=== PATIENT | male | born 1990 | race American Indian/Alaskan Native ===

== ENCOUNTER 2018-12-14 14:10 | Emergency (ER) | payer OTHER ==
[2018-12-14 15:06] VITALS: TEMP 98.7; O2SAT 99
--- NOTE | 2018-12-14 16:31 | ED PDOC ---
HPI: Skin/Bite Injury Time Seen by Provider: 12/14/18 15:43 Chief Complaint (Nursing): GI Problem History Per: Patient Additional Complaint(s): Pt. states for the past 3 weeks he's had a progressively worsening rectal pain with foul smelling discharge. States on 02/2018 he had a rectal abscess which was drained in the OR in [facility]. Has not used any meds to help relieve symptoms. Denies fever, chills, abdominal pain. Past Medical History Reviewed: Historical Data, Nursing Documentation, Vital Signs Vital Signs: Last Vital Signs Temp 98.7 F 12/14/18 15:02 Pulse 67 12/14/18 15:02 Resp 16 12/14/18 15:02 BP 118/75 12/14/18 15:02 Pulse Ox 99 12/14/18 15:02 Primary Care Provider: FAMILY PROVIDER,NO - Medical History PMH: No Chronic Diseases Denies: Diabetes - Family History Family History: States: No Known Family Hx - Allergies Allergies/Adverse Reactions: Allergies Allergy/AdvReac Type Severity Reaction Status Date / Time No Known Allergies Allergy Verified 12/14/18 15:02 Review of Systems ROS Statement: Except As Marked, All Systems Reviewed And Found Negative Gastrointestinal: Positive for: Rectal Pain Physical Exam - Physical Exam Appears: Positive for: Well, Non-toxic, In Acute Distress (moderate painful distress) Eye Exam: Positive for: Normal appearance Cardiovascular/Chest: Positive for: Regular Rate, Rhythm Respiratory: Positive for: Normal Breath Sounds. Negative for: Respiratory Distress Gastrointestinal/Abdominal: Positive for: Normal Exam, Soft. Negative for: Tenderness Back: Positive for: Other (minimal b/l medial buttoc induration with foul smelling discharge; unable to visualized rectum ) Neurological/Psych: Positive for: Awake, Alert, Oriented (x3) - Laboratory Results Result Diagrams: 12/14/18 19:40 - ECG O2 Sat by Pulse Oximetry: 99 - Progress ED Course And Treament: Labs, CT pelvis w/ IV contrast, morphine 2mg IV, zofran 4mg IV ordered. Disposition - Clinical Impression Clinical Impression: Rectal pain - Patient ED Disposition Is Patient to be Admitted: Transfer of Care (Signed out to Lima CARRILLO pending labs and CT report) - Disposition Disposition Time: 20:00 Condition: FAIR Forms: [employer] (Eritrean)
[2018-12-14 19:54] LABS: BASO # 0.1 K/uL (0.0-0.2); EOS # 0.1 K/uL (0.0-0.7); HEMOGLOBIN 15.1 g/dL (12.0-18.0); LYMPH % 38.5 % (20.0-40.0); MEAN CELL VOLUME 90.7 fl (80.0-94.0); MEAN CORPUSCULAR HEMOGLOBIN 30.6 pg (27.0-31.0); MEAN CORPUSCULAR HGB CONC 33.7 g/dL (33.0-37.0); MEAN PLATELET VOLUME 7.8 fl (7.2-11.7); MONO # 0.5 K/uL (0.0-0.8); NEUT # 2.5 K/uL (1.8-7.0); NEUT % 49.5 % (50.0-75.0); NRBC % 0.3 % (0.0-0.0); RBC 4.94 Mil/uL (4.40-5.90); RED CELL DISTRIBUTION WIDTH 12.7 % (11.5-14.5); WHITE BLOOD COUNT 5.1 K/uL (4.8-10.8)
[2018-12-14 20:08] LABS: ALB/GLOB RATIO 1.4 (1.0-2.1); ALBUMIN 4.5 g/dL (3.5-5.0); ALT/SGPT 34 U/L (21-72); AST/SGOT 28 U/L (17-59); BLOOD UREA NITROGEN 10 mg/dl (9-20); CALCIUM 9.4 mg/dL (8.4-10.2); GFR NON-AFRICAN AMERICAN > 60
[2018-12-14] MEDS ORDERED: Sodium Chloride 0.9% 50 ML IV ONE (21:04)
[2018-12-14] MEDS ORDERED: Iohexol 300 100 ML IJ ONE (21:04)
--- NOTE | 2018-12-14 21:23 | ED PDOC ---
- Laboratory Results Result Diagrams: 12/14/18 19:40 12/14/18 19:40 Lab Results: Total Bilirubin 0.6 mg/dl (0.2-1.3) 12/14/18 19:40 AST 28 U/L (17-59) 12/14/18 19:40 ALT 34 U/L (21-72) 12/14/18 19:40 Alkaline Phosphatase 51 U/L (38-126) 12/14/18 19:40 Total Protein 7.9 G/DL (6.3-8.2) 12/14/18 19:40 Albumin 4.5 g/dL (3.5-5.0) 12/14/18 19:40 Globulin 3.4 gm/dL (2.2-3.9) 12/14/18 19:40 Albumin/Globulin Ratio 1.4 (1.0-2.1) 12/14/18 19:40 - ECG O2 Sat by Pulse Oximetry: 99 - Progress ED Course And Treament: Case endorsed to documentation writer from Meghann CARRILLO pending labs, CT EXAM: CT Pelvis with IV contrast CLINICAL HISTORY: Rectal pain h/o rectal abcess TECHNIQUE: Axial computed tomography images of the pelvis with intravenous contrast. 365.30 mGy-cm CONTRAST: With intravenous contrast. COMPARISON: None provided. FINDINGS: APPENDIX/BOWEL: No evidence of acute appendicitis on CT examination. At the 10:00-11 o'clock position in the lower rectal mucosal wall; there is identified a focal 2.2 x 3.1 cm area of mural thickening. The possibility of rectal mucosal mass or localized proctitis cannot be excluded. Correlation with proctoscopy is recommended. No perirectal abscess is identified. URINARY BLADDER: Normal in size and configuration. PERITONEUM: No free fluid. No free air. LYMPH NODES: No lymphadenopathy is evident. REPRODUCTIVE: Unremarkable as visualized. VASCULATURE: No evidence of abdominal aortic aneurysm. BONES: No aggressive appearing osseous lesion. No acute osseous pathology evident. IMPRESSION: 1. Lower rectal mucosal wall mural thickening as above. Correlation with proctoscopy is recommended. 2. No identification of perirectal abscess. Patient evaluated by Dr. Singh, residential nurse on-call; recommends d/c with antibiotics, sitz baths for gluteal abscess as per Dr. Maddox Patient educated on findings, discharged with rx Bactrim DS Patient was advised to follow up with surgery for abscess and GI for proctitis findings Return precautions given Disposition - Clinical Impression Clinical Impression: Rectal pain, Gluteal abscess - POA Present On Arrival: None - Disposition Disposition: Routine/Home Disposition Time: 00:00 Condition: STABLE Forms: [facility] (Lithuanian)
--- NOTE | 2018-12-14 22:36 | CP.PCM.CON ---
History of Present Illness - History of Present Illness History of Present Illness: Surgery Consult note. Dr. Maddox 28yo M with PMHx of perineal abscess s/p drainage 02/2018 here for recurrent symptoms. Patient reports 2 weeks of worsening pain in the perineal region. Noted to have drainage that began 7 days ago but the pain persists. Denies any fevers or chills. No N/V/D. Reports regular bowel movements with one episode of some bright red blood per rectum last week, which has since resolved. Denies any abdominal pain. Denies any urinary complaints. Denies being on any recent antibiotics and denies ever using any SITZ baths. No recent travel. PMHx: perineal/gluteal abscess PSHx: perineal/gluteal abscess drainage 02/2018 Family Hx: Denies Social Hx: Denies tobacco use, Occasional ETOH use. Denies illicit drugs NKDA Review of Systems - Review of Systems All systems: reviewed and no additional remarkable complaints except - Constitutional Constitutional: absent: Chills, Fever Past Patient History - Past Medical History & Family History Past Family History: Reviewed and not pertinent - Past Social History Smoking Status: Never Smoked Alcohol: Social - PSYCHIATRIC Hx Substance Use: No - SURGICAL HISTORY Hx Surgeries: No Other/Comment: rectal abscess surgery 2019 Meds Allergies/Adverse Reactions: Allergies Allergy/AdvReac Type Severity Reaction Status Date / Time No Known Allergies Allergy Verified 12/14/18 15:02 Physical Exam - Constitutional Appears: Well, Non-toxic, No Acute Distress - Head Exam Head Exam: ATRAUMATIC, NORMAL INSPECTION, NORMOCEPHALIC - Eye Exam Eye Exam: EOMI, Normal appearance. absent: Scleral icterus - ENT Exam ENT Exam: Mucous Membranes Moist - Respiratory Exam Respiratory Exam: NORMAL BREATHING PATTERN. absent: Accessory Muscle Use, Respiratory Distress - Cardiovascular Exam Cardiovascular Exam: absent: JVD - GI/Abdominal Exam GI & Abdominal Exam: Soft. absent: Distended, Firm, Guarding, Rebound, Rigid - Rectal Exam Additional comments: No rectal tenderness in all quadrants on RIA. Stool noted in the rectal vault. No blood. - Skin Additional comments: Left gluteal area of mild induration with active purulent drainage noted. Noted to have some hypergranulation tissue presumably at the prior I&D site. No discernable collection noted. No fluctuance. Results - Vital Signs Recent Vital Signs: Last Vital Signs Temp 98.7 F 05/07/19 15:02 Pulse 67 12/14/18 15:02 Resp 16 12/14/18 15:02 BP 118/75 12/14/18 15:02 Pulse Ox 99 12/14/18 22:05 - Labs Result Diagrams: 12/14/18 19:40 12/14/18 19:40 Labs: Laboratory Results - last 24 hr 12/14/18 12/14/18 19:40 19:40 WBC 5.1 RBC 4.94 Hgb 15.1 Hct 44.8 MCV 90.7 MCH 30.6 MCHC 33.7 RDW 12.7 Plt Count 284 MPV 7.8 Neut % (Auto) 49.5 L Lymph % (Auto) 38.5 [place] % (Auto) 9.0 Eos % (Auto) 2.0 Baso % (Auto) 1.0 Neut # (Auto) 2.5 Lymph # (Auto) 2.0 [place] # (Auto) 0.5 Eos # (Auto) 0.1 Baso # (Auto) 0.1 Sodium 136 Potassium 3.9 Chloride 96 L Carbon Dioxide 31 H Anion Gap 13 BUN 10 Creatinine 0.7 L Est GFR ( Amer) > 60 Est GFR (Non-Af Amer) > 60 Random Glucose 78 Calcium 9.4 Total Bilirubin 0.6 AST 28 ALT 34 Alkaline Phosphatase 51 Total Protein 7.9 Albumin 4.5 Globulin 3.4 Albumin/Globulin Ratio 1.4 Assessment & Plan - Assessment and Plan (Free Text) Assessment: 28yo M with left gluteal abscess, actively draining. Plan: - cleared for discharge home from surgery standpoint - close follow up with Dr. Maddox in office. Call for appointment - D/C on PO Abx - Recommend SITZ baths - Keep area clean and dry. - Discussed plan with patient at length who understands and agrees. All questions addressed. Further recs as per Dr. Tan Singh PGY2 surgery
[2018-12-15 06:50] VITALS: BP 108/66; PULSE 63; RESP 18
--- NOTE | 2018-12-15 11:11 | CT ---
Date of service: 12/14/2018 PROCEDURE: CT Pelvis with contrast HISTORY: rectal pain, hx of rectal abscess COMPARISON: None TECHNIQUE: Contiguous axial images of the pelvis with contrast. Coronal and sagittal reformats generated. Contrast dose: 95 cc Visipaque 320. Radiation dose: Total exam DLP = 365.3 mGy-cm. This CT exam was performed using one or more of the following dose reduction techniques: Automated exposure control, adjustment of the mA and/or kV according to patient size, and/or use of iterative reconstruction technique. FINDINGS: BLADDER: Unremarkable. No mass. REPRODUCTIVE ORGANS: Unremarkable. VISUALIZED BOWEL: Unremarkable. PERITONEUM: Unremarkable, as visualized. No free fluid. No free air. LYMPH NODES: Unremarkable. No enlarged lymph nodes. VASCULATURE: No aortic atherosclerotic calcification or mural plaque present. BONES: No fracture or focal lesion. OTHER FINDINGS: Lateral and posterior thickening of the wall of the rectum to the left of the midline with inflammatory changes extending to the lower pelvic sidewall. Please refer to axial series 2/image 49 and coronal series 601/image 69. No discrete abscess or drainable collection identified. No of sense of sinus tract or fistula. The adjacent urinary bladder is unaffected. IMPRESSION: Left lateral and posterior proctitis. No drainable abscess, fistulous communication, sinus tract or other pathologic process. Concordant results (preliminary interpretation) provided by [employer]. Procedure Completed: 21:20. Preliminary Report: Interpreted and electronically signed: 22:03. Final Interpretation: 10:06. December 15, 2018.
== END 2018-12-15 00:15 | disposition home or self-care (01) ==
LOC: H.ER 14:10
DX: K61.0 Anal abscess (principal)
CPT/HCPCS: 72193; 80053; 85025; 87040; 99285; Q9967